=== PATIENT | male | born 1960 | race Caucasian/White ===

== ENCOUNTER 2020-02-27 15:10 | Emergency (ER) | payer OTHER ==
--- NOTE | 2020-02-27 15:41 | ED.PDOC ---
History of Present Illness - General Chief Complaint: General Time Seen by Provider: 02/27/20 15:38 Source: patient Exam Limitations: no limitations - History of Present Illness Initial Comments: The patient is a 59M with history of CAD, HTN, HLD, and current smoker who presents with complaints of possible sinus infection. He states that for the past 10 days he has had nasal congestion with facial pain/pressure and tenderness. He has associated fullness in his ears. He states that he typically gets a sinus infection once a year. He denies any recent travel or known sick contacts. He has associated chest congestion but denies chest pain, shortness of breath, nausea and vomiting. No other complaints at this time. Allergies/Adverse Reactions: Allergies NO KNOWN ALLERGY Allergy (Verified 02/27/20 16:21) Home Medications: Ambulatory Orders Amoxicillin 500 mg PO BID #20 cap 02/27/20 Guaifenesin [Mucinex] 600 mg PO BID #20 tab 02/27/20 Prednisone 60 mg PO DAILY #15 tab 02/27/20 Review of Systems - Review of Systems Constitutional: States: malaise. Denies: chills, fever EENTM: States: eye pain, ear pain, nose pain, nose congestion Respiratory: Denies: cough, short of breath Cardiology: States: other - chest congestion. Denies: chest pain Gastrointestinal/Abdominal: Denies: abdominal pain, diarrhea, nausea, vomiting Genitourinary: States: no symptoms reported Musculoskeletal: States: no symptoms reported Skin: States: no symptoms reported Neurological: States: no symptoms reported Endocrine: States: no symptoms reported Hematologic/Lymphatic: States: no symptoms reported All other Systems: Reviewed and Negative Family Medical History - Family History Mother Family History: No Known Physical Exam - Physical Exam General Appearance: Comfortable, No apparent distress Ears, Nose, Throat: hearing grossly normal, normal ENT inspection, normal pharynx, sinus pain/drainage - tenderness to percussion over frontal and maxillary sinuses, nasal congestion Neck: non-tender, full range of motion, supple Respiratory: chest non-tender, lungs clear, normal breath sounds, no respiratory distress, no accessory muscle use Cardiovascular/Chest: regular rate, rhythm, no edema Gastrointestinal/Abdominal: non tender, soft Neurologic: no motor/sensory deficits, alert, normal mood/affect, oriented x 3 Progress - Progress Progress: 02/27/20 15:40 Patient evaluated as above. Given 10 days of symptoms will treat for acute sinusitis. He denies any chest pain and has a normal EKG. No suspicion for ACS at this time. Discussed guaifenesin, steroids, antibiotics and outpatient follow up with PCP. Home care instructions and return indications reviewed. - Results/Orders Results/Orders: MDM: The patient is a 59 year old male with URI/Sinus congestion and tenderness over frontal/maxillary sinuses for greater than 10 days. Will treat for URI and acute sinusitis. Discussed symptomatic management of congestion. he will follow up with his PCP. Home care instructions and return indications reviewed. - EKG/XRAY/CT Comments: 1526 nsr @ 74, normal axis, normal intervals, no STEMI Departure - Departure Clinical Impression: Acute sinusitis Qualifiers: Sinusitis location: frontal Recurrence: non-recurrent Qualified Code(s): J01.10 - Acute frontal sinusitis, unspecified Time of Disposition: 15:42 Disposition: Discharge to Home or Self Care Condition: Fair Departure Forms: ED Discharge - Pt. Copy, Patient Portal Self Enrollment Instructions: Sinusitis, Adult (DC) Diet: resume usual diet Activity: increase activity as tolerated Prescriptions: Amoxicillin 500 mg PO BID #20 cap Guaifenesin [Mucinex] 600 mg PO BID #20 tab Prednisone 60 mg PO DAILY #15 tab Home Medications: Ambulatory Orders Amoxicillin 500 mg PO BID #20 cap 02/27/20 Guaifenesin [Mucinex] 600 mg PO BID #20 tab 02/27/20 Prednisone 60 mg PO DAILY #15 tab 02/27/20 Additional Instructions: Follow up with your primary care provider in 1-2 weeks. Return to the Emergency Department with any worsening of your symptoms, questions, or concerns.
[2020-02-27 16:40] VITALS: BP 145/80; TEMP 97.2; O2SAT 94
== END 2020-02-27 16:10 | disposition home or self-care (01) ==
LOC: ER 15:10
DX: J01.10 Acute frontal sinusitis, unspecified (principal); I25.10 Atherosclerotic heart disease of native coronary artery without angina pectoris; I10 Essential (primary) hypertension; E78.00 Pure hypercholesterolemia, unspecified